=== PATIENT | female | born 1990 | race Two or more races ===

== ENCOUNTER 2017-12-25 08:45 | Inpatient (IN) | payer OTHER ==
[~2017-12-25] VITALS: Ht 154.9 cm; Wt 56.7 kg
[~2017-12-25 08:45] MED LIST: NORETHINDRONE PO; SYNTHROID50 MCG PO
[2017-12-26] MEDS ORDERED: NORETHINDRONE0.35 MG (18:53)
== END 2017-12-27 10:31 | disposition home or self-care (01) | DRG 743 ==
LOC: CIR.AMB 08:45 → RECOVERY 14:00 → EDBD 14:00 → CIR.AMB 14:00 → EDSTATUS 14:00 → OB/GYN 17:04
PROVIDERS: Obstetrics & Gynecology Gynecology
PROC: 0DNW4ZZ Release Peritoneum, Percutaneous Endoscopic Approach (ICD-10-PCS; 2017-12-25)
PROC: 0UBF4ZZ Excision of Cul-de-sac, Percutaneous Endoscopic Approach (ICD-10-PCS; 2017-12-25)
PROC: 0UB14ZZ Excision of Left Ovary, Percutaneous Endoscopic Approach (ICD-10-PCS; principal; 2017-12-25 07:00)
DX: N80.1 Endometriosis of ovary (principal); N80.3 Endometriosis of pelvic peritoneum; N73.6 Female pelvic peritoneal adhesions (postinfective)